=== PATIENT | male | born 2000 | race Caucasian/White ===

== ENCOUNTER 2021-06-02 15:54 | Inpatient (IN) | payer BC ==
[~2021-06-02] VITALS: Ht 175.3 cm; Wt 71.5 kg
[2021-06-02 16:56] LABS: BASO # 0.1 K/mm3 (0.0-0.2); BASO % 0.7 % (0.0-2.0); EOS # 0.1 K/mm3 (0.0-0.7); HEMOGLOBIN 15.8 g/dl (13.5-18.0); LYMPH # 1.9 K/mm3 (1.2-3.4); LYMPH % 27.7 % (20.0-51.0); MEAN CELL VOLUME 85 fl (80.0-100.0); MEAN CORPUSCULAR HEMOGLOBIN 31 pg (27-31); MEAN CORPUSCULAR HGB CONC 36 g/dl (33.0-37.0); MONO # 0.7 K/mm3 (0.1-0.6); MONO % 10.5 % (1.7-9.3); PLATELET COUNT 252 K/mm3 (130-400); RED BLOOD COUNT 5.15 M/mm3 (4.20-5.60); REDCELL DISTRIBUTION WIDTH-CV 11.6 % (11.5-14.5)
[2021-06-02 17:08] LABS: ALANINE AMINOTRANSFERASE 13 U/L (0-55); ALBUMIN 4.5 gm/dL (3.5-5.0); ALKALINE PHOSPHATASE 82 U/L (40-150); ANION GAP 11 mmol/L (7-16); AST,SGOT 21 U/L (5-34); BILIRUBIN,TOTAL 0.7 mg/dL (0.2-1.2); BLOOD UREA NITROGEN 7 mg/dL (9-21); CALCIUM 9.3 mg/dL (8.4-10.2); CARBON DIOXIDE 25 mmol/L (22-29); CHLORIDE 103 mmol/L (98-107); CREATININE, serum 1.15 mg/dL (0.72-1.25); GLUCOSE 88 mg/dL (70-99); SODIUM 139 mmol/L (136-145)
[2021-06-02 17:18] LABS: TROPONIN-I < 0.010 ng/mL (0.00-0.033)
[2021-06-02] MEDS ORDERED: VYVANSE50 MG PO (22:38)
[2021-06-02] MEDS ORDERED: AMOXICILLIN 8751 TAB PO (22:38)
[2021-06-02] MEDS ORDERED: AXERT12.5 MG (22:39)
[2021-06-02] MEDS ORDERED: DEXMETHYLPHENI2.5 MG PO (22:40)
[2021-06-02] MEDS ORDERED: MOTRIN 600600 MG/TAB PO (22:41)
[2021-06-02 23:12] VITALS: BP 136/72; PULSE 77; TEMP 98
--- NOTE | 2021-06-02 23:24 | NUR ---
PATIENT UP TO ROOM 343. ALERT AND ORIENTED. MOM AT BEDSIDE. AMBULATED FROM STRETCHER TO BED INDEPENDENTLY. CHEST TUBE TO L CHEST TO 80 CONTINUOUS SUCTION. LR INFUSING TO L AC IV AT 75 ML/HR. MED RX COMPLETED. ADMISSION ASSESSMENTS COMPLETED. C/O MODERATE PAIN 10 TO L CHEST. AWAITING PHARMACY VERIFICATION OF ORDERS. PATIENT IN BED SITTING UP EATING. CALL LIGHT IN REACH.
[2021-06-03 03:00] VITALS: BP 132/77; PULSE 56; TEMP 98
--- NOTE | 2021-06-03 06:45 | NUR ---
Report received, assumed care for day shift.
[2021-06-03 07:37] VITALS: BP 127/68; PULSE 50; TEMP 97.2
--- NOTE | 2021-06-03 08:45 | NUR ---
Assessment complete. A&Ox3. Denies nausea/shortness of breath. VS stable. Left chest tube to dry seal continuous suction. Scant amount of pink tinged fluid present in tubing. LR@75ml/hr tp left AC IV infusing without difficulty. Plan of care discussed for this shift to include meds/pain control/calling for questions/concerns. Verbalizes understanding. Call light in reach. Will monitor.
--- NOTE | 2021-06-03 08:59 | NUR ---
Percocet one tab given per dr order for pain in left chest tube site-rated 7/10 on pain scale.
--- NOTE | 2021-06-03 09:05 | NUR ---
Dr Kirk called at this time for clarification on chest tube/suction settings. States he will put in orders again as they were DCd when transferred from ED. Will wait for orders to be placed.
--- NOTE | 2021-06-03 10:08 | NUR ---
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 No needs right now.
[2021-06-03 11:32] VITALS: BP 128/52; PULSE 102; TEMP 98.2
--- NOTE | 2021-06-03 13:18 | NUR ---
Patient has refused breakfast/lunch tray-family brought in outside food for meals.
--- NOTE | 2021-06-03 15:16 | NUR ---
[facility]pr Ambulance Driver met with patient to discuss discharge planning. Patient lives in [place] with 8 roommates and is a student at [employer]. Patient has primary care set up in [place] and does not use any DME. Patient is independent with ADLS. Patient does not have Advance Directives and his mother, Sulema is his legal next of kin. Patient plans to return home at time of discharge. SW notified office of student life that patient is admitted and provided patient with a note verifying his admission. Discharge Plan: Home
[2021-06-03 15:40] VITALS: BP 136/62; PULSE 85; TEMP 98.4
--- NOTE | 2021-06-03 15:40 | NUR ---
Chest tube to water seal at this time.
--- NOTE | 2021-06-03 16:50 | NUR ---
Continues to rest in bed with no c/o at this time. Chest tube to water seal. Denies nausea/shortness of breath. Encouraged to call for needs. Verbalizes understanding. Call light in reach. Will monitor.
--- NOTE | 2021-06-03 17:13 | NUR ---
Colet had an uneventful day. Received percocet x2 for pain with good results. Denied nausea/shortness of breath. VS remained stable. Chest tube to water seal per dr order. Denies current needs. Call light in reach. Will monitor.
[2021-06-03 19:53] VITALS: BP 138/64; PULSE 80; TEMP 98.4
--- NOTE | 2021-06-03 20:15 | NUR ---
PT IN BED, FRIEND IN BED WITH HIM WELL. REPORTS PAIN TO LEFT CHEST TUBE SITE. MEDICATED WITH PERCOCET 1 TAB PO AT THIS TIME. DRSG SECURE TO LEFT CHEST, HAS SMALL BARREL CT TO WATERSEAL. LUNGS CLEAR. IVF TO LEFT ARM, INFUSING WITHOUT REDNESS OR SWELLING.
[2021-06-03 23:24] VITALS: BP 123/63; PULSE 67; TEMP 98.1
[2021-06-04 04:00] VITALS: BP 121/56; PULSE 77; TEMP 98
--- NOTE | 2021-06-04 05:44 | NUR ---
PT IN BED, HAS RESTED WELL. LEFT CHEST TUBE REMAINS TO WATERSEAL, MILD DISCOMFORT, PERCOCET GIVEN AT THIS TIME. VOIDING YELLOW URINE, EMPTIED 600CC FROM URINAL AT THIS TIME.
[2021-06-04 07:39] VITALS: BP 152/70; PULSE 68; TEMP 97.8
--- NOTE | 2021-06-04 10:02 | NUR ---
PT IS A/O X4. CHEST TUBE INPLACE TO WATERSEAL. PT DENIES SOB PAIN OR NEEDS AT THIS SANGITA. PT'S FAMILY AT BEDSIDE. QUESTIONS ANSWERED. PT ATE FOOD FROM OUTSIDE AND BREAKFAST TRAY. IV TO PUMP PER ORDERS.
[2021-06-04 12:00] VITALS: BP 134/78; PULSE 78; TEMP 98.4
[2021-06-04] MEDS ORDERED: MOTRIN 600600 MG/TAB PO (13:37)
[2021-06-04] MEDS ORDERED: PERCOCET 325 MG1 TA2 PO (13:37)
[2021-06-04 15:06] VITALS: BP 139/70; PULSE 81; TEMP 98.1
--- NOTE | 2021-06-04 17:58 | NUR ---
DISCHARGE INSTRUCTIONS REVIEWED WITH PT AND MOM. QUESTIONS SOLICITED AND ANSWERED. PT LEFT UNIT AMBULATORY.
== END 2021-06-04 16:00 | disposition home or self-care (01) | DRG 201 ==
LOC: COL.ER 15:54 → SURG 21:27
PROVIDERS: Personal Emergency Response Attendant; ADMIT Surgery
PROC: 0W9B30Z Drainage of Left Pleural Cavity with Drainage Device, Percutaneous Approach (ICD-10-PCS; principal; 2021-06-02)
DX: J93.9 Pneumothorax, unspecified (principal)
CPT/HCPCS: OP; A9284; G0378; J1170; J2060; J7120; Q9967

== ENCOUNTER → 2021-06-16 | Outpatient (CLI) | payer BC ==
[~2021-06-16] MED LIST: AMOXICILLIN 8751 TAB PO; AXERT12.5 MG; DEXMETHYLPHENI2.5 MG PO; MOTRIN 600600 MG/TAB PO; PERCOCET 325 MG1 TA2 PO; VYVANSE50 MG PO
== END ==
LOC: COL.RAD 09:42
DX: J93.9 Pneumothorax, unspecified (principal)